=== PATIENT | male | born 1955 | race Caucasian/White ===

== ENCOUNTER 2019-04-28 14:47 | Day surgery (SDC) | payer OTHER ==
[~2019-04-28] VITALS: Ht 182.9 cm; Wt 102.3 kg
[2019-04-28 15:02] VITALS: Ht 182.9 cm; Wt 102.3 kg
[2019-04-28] MEDS ORDERED: LISINOPRIL20 MG PO (15:03)
[2019-04-28] MEDS ORDERED: MOBIC7.5 MG (15:04)
[2019-04-28] MEDS ORDERED: LIPITOR40 MG PO (15:04)
[2019-04-28 15:41] LABS: BASOPHILS 0.1 % (0-2); EOSINOPHILS 0.2 % (0-7); HEMATOCRIT 46.3 % (42.0-54.0); HEMOGLOBIN 16.4 g/dL (13.5-17.5); IMMATURE GRANULOCYTES 0.3 % (0-5); LYMPHOCYTES 9.6 % (15-50); MCH 32.3 pg (26.0-34.0); MCHC 35.4 g/dL (31.0-37.0); MCV 91.1 fL (80.0-100.0); MEAN PLATELET VOLUME 8.7 fL (7.4-10.4); MONOCYTES 3.3 % (2-11); NEUTROPHILS 86.5 % (40-80); PLATELET COUNT 164 10x3/uL (130-400); RBC 5.08 10x6/uL (4.20-6.10); RDW 12.9 % (11.5-14.5); WBC 11.2 10x3/uL (4.8-10.8)
[2019-04-28 15:46] LABS: APPEARANCE CLEAR (CLEAR); COLOR YELLOW (YELLOW); GLUCOSE NEGATIVE (NEGATIVE); KETONE SMALL mg/dL (NEGATIVE); NITRITE NEGATIVE (NEGATIVE); PROTEIN 1+ mg/dL (NEGATIVE)
[2019-04-28 15:47] LABS: BILIRUBIN NEGATIVE (NEGATIVE); UROBILINOGEN NORMAL (NORMAL)
[2019-04-28 15:51] LABS: BACTERIA FEW /hpf (NEGATIVE); EPITHELIAL CELLS NSEEN /hpf (0-5); RED CELLS - URINE 25-50 /hpf (0-5); WHITE CELLS - URINE 0-5 /hpf (NEGATIVE)
[2019-04-28 15:54] LABS: CALC OSMOLALITY 280 mosm/kg (275-300); CALCIUM 9.2 mg/dL (8.5-10.1); CARBON DIOXIDE 31.6 mmol/L (21.0-32.0); CHLORIDE - SERUM 98 mmol/L (98-107); CREATININE - SERUM 1.2 mg/dL (0.6-1.3); GLUCOSE 156 mg/dL (74-106); POTASSIUM - SERUM 3.7 mmol/L (3.5-5.1); SODIUM 138 mmol/L (136-145); UREA NITROGEN 18 mg/dL (7-18); eGFR NON AFRICAN AMERICAN 65 mL/min (90-120)
[2019-04-28 16:03] LABS: ALBUMIN 4.3 g/dL (3.4-5.0); ALKALINE PHOSPHATASE 48 U/L (46-116); ALT (SGPT) 114 U/L (10-68); AMYLASE - SERUM 78 U/L (25-115); LIPASE 435 U/L (73-393); PROTEIN - SERUM 7.9 g/dL (6.4-8.2); TROPONIN-I < 0.017 ng/mL (0.000-0.060)
[2019-04-28 17:25] LABS: APTT 26.4 SECONDS (22.8-39.4); INR 0.99 (0.85-1.17)
--- NOTE | 2019-04-28 19:20 | NUR ---
PT TO ROOM 2133 VIA BED ACCOMPANIED BY HOSPITAL STAFF AND .
--- NOTE | 2019-04-28 19:30 | NUR ---
VS: 97.5 ORAL, 116/68, HR 75, RR 19, 93% RA. DENIES PAIN OR ANY OTHER NEEDS AT THIS TIME. BED IN LOWEST POSITION, SR X1, CALL LIGHT WITHIN REACH. AT BEDSIDE. WILL CONTINUE TO MONITOR.
--- NOTE | 2019-04-28 20:00 | NUR ---
VS: 97.6 ORAL, 128/71, HR 75, RR 19, 97% RA. DENIES PAIN OR ANY OTHER NEEDS AT THIS TIME. BED IN LOWEST POSITION, SR X1, CALL LIGHT WITHIN REACH. FAMILY AT BEDSIDE. WILL CONTINUE TO MONITOR.
[2019-04-28 20:10] VITALS: BP 116/68
[2019-04-28 20:12] VITALS: BP 128/71
--- NOTE | 2019-04-28 20:35 | NUR ---
PIV TO LEFT AC REMOVED, CATHETER TIP INTACT, NO S/S OF BLEEDING AT SITE, PT TOLERATED WELL. DENIES N/V, DENIES ANY OTHER NEEDS AT THIS TIME. ASSISTED VIA WHEELCHAIR TO VEHICLE WITH .
--- NOTE | 2019-04-29 09:14 | OP ---
PATIENT NAME: SHEREEN CASTANO MEDICAL RECORD: [id number] :55 LOCATION:D.[facility] ADMISSION DATE: SURGEON: JOSE CRUZ MONTENEGRO MD DATE OF OPERATION: 04/28/2019 SURGEON: Jose Cruz Montenegro MD ANESTHESIA: TIVA by Juanjo Gaines CRNA. DIAGNOSIS: Right renal stone 9 mm at the right UP junction with hydronephrosis. PROCEDURES: Cystoscopy, right retrograde pyelogram, right ureteral stent insertion 6-[place] x 24 cm with string attached. FINDINGS: Radiodense right renal stone, 9 mm. BLOOD LOSS: None. CLINICAL HISTORY: This is a 64-year-old male with no previous history of kidney stones. He had a 2-day history of right flank pain with nausea and vomiting. CT scan done in the Emergency Room shows one stone in the right renal system, which is obstructing the right UP junction. There are no stones on the left kidney. He comes now to have a right ureteral stent inserted and at a later date, we will perform right ESWL to break up the stone. 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 DESCRIPTION OF PROCEDURE: The patient was given IV sedation. He was then placed into lithotomy position and prepped and draped. A 21-[place] cystoscope with 30-degree lens was used for visualization. There are no penile urethral strictures. The prostatic lateral lobes are obstructive. He has an elevated bladder neck also. No median lobe is seen. Single ureteral orifices are seen on each side. No bladder tumors were seen. An open-ended ureteral catheter was inserted into the right ureteral orifice and diluted contrast was injected. This gave a retrograde pyelogram and confirmed that the radiodensity we saw on fluoroscopy was indeed the renal stone. Through the lumen of the ureteral catheter, we inserted a Sensor wire into the renal pelvis. Once the wire was in position, the ureteral catheter was removed entirely. Over the wire, we inserted the 6-[place] x 24 cm ureteral stent. Once the stent was in correct position, the wire was withdrawn entirely. The stent was pushed into the bladder using a pusher. The bladder was then emptied through the cystoscope sheath and then the scope was removed. The string on the distal end of stent is maintained. It was tied to itself in a knot and then cut shorter. The patient was awakened and brought to the step-down bed where he will be transferred home. TRANSINT:[id number] Voice Confirmation ID: [id number] DOCUMENT ID: [id number] JOSE CRUZ MONTENEGRO MD at 0914 CC: [id number] DICTATION DATE: 04/28/191927 WARP HANGER: 04/28/195 [facility] [place] 04/28/19 [place] [id number]
[2019-05-03] MEDS ORDERED: ZYRTEC10 MG PO (09:42)
[2019-05-03] MEDS ORDERED: FLOMAX0.4 MG PO (09:42)
== END 2019-04-28 20:00 | disposition home or self-care (01) ==
LOC: D.ER 14:47 → D.OPS 14:47 → D.M2 18:30 → D.ER 18:38 → EDSTATUS 19:44 → D.OPS 20:00
PROVIDERS: ATTEND Emergency Medicine
DX: N13.2 Hydronephrosis with renal and ureteral calculous obstruction (principal)

== ENCOUNTER 2019-05-05 09:30 | Day surgery (SDC) | payer OTHER ==
[~2019-05-05] VITALS: Ht 182.9 cm; Wt 102.1 kg
[~2019-05-05 09:30] MED LIST: FLOMAX0.4 MG PO; LIPITOR40 MG PO; LISINOPRIL20 MG PO; MOBIC7.5 MG; ZYRTEC10 MG PO
[2019-05-05 09:54] LABS: HEMATOCRIT 45.1 % (42.0-54.0); HEMOGLOBIN 15.7 g/dL (13.5-17.5); MCH 31.8 pg (26.0-34.0); MCHC 34.8 g/dL (31.0-37.0); MCV 91.5 fL (80.0-100.0); MEAN PLATELET VOLUME 8.6 fL (7.4-10.4); RBC 4.93 10x6/uL (4.20-6.10); RDW 12.9 % (11.5-14.5); WBC 6.2 10x3/uL (4.8-10.8)
[2019-05-05 10:25] VITALS: BP 138/77; Ht 182.9 cm; Wt 102.1 kg
--- NOTE | 2019-05-05 15:51 | NUR ---
1510 IV REMOVED AND PT GIVEN INSTRUCTIONS AND D/C HOME
--- NOTE | 2019-05-05 18:55 | OP ---
PATIENT NAME: SHEREEN CASTANO MEDICAL RECORD: [id number] :55 LOCATION:D.[facility] ADMISSION DATE: SURGEON: JOSE CRUZ MONTENEGRO MD DATE OF OPERATION: 05/05/2019 SURGEON: Jose Cruz Montenegro MD ANESTHESIA: General anesthesia by Eulogio Catherine CRNA DIAGNOSIS: A 9 mm right renal stone. PROCEDURE: Right extracorporeal shock wave lithotripsy back at ESWL times 3000 shocks. FINDINGS: Radiodense right renal stone. BLOOD LOSS: None INDICATION: A 64-year-old male who initially presented with right renal colic due to a 9-mm stone in the right UP junction. He has a right ureteral stent inserted. He comes today to have lithotripsy done. He was given ampicillin and sulbactam on trial to the OR. DESCRIPTION OF PROCEDURE: The patient was placed on the treatment table. The stone was identified. It could be targeted in 2 planes. He was then given induction of general anesthesia. The stone was given 3000 shocks and was seen to break up. I will see the patient back in followup in 2 weeks' time with a KUB. If at that time, the stone is entirely gone then the stent can be removed by pulling on the string. TRANSINT:[id number] Voice Confirmation ID: [id number] DOCUMENT ID: [id number] JOSE CRUZ MONTENEGRO MD at 1855 CC: [id number] DICTATION DATE: 05/05/19 1259 LOAD TEST MECHANIC: 05/05/19 1723 [facility] 05/05/19 [place] [id number] [place] [address]
== END 2019-05-05 15:10 | disposition home or self-care (01) ==
LOC: D.OPS 09:30 → D.PAN 12:00 → D.OPS 12:45 → D.PAN 12:45 → D.OPS 15:10
PROVIDERS: Anesthesiology; ATTEND Urology
DX: N20.0 Calculus of kidney (principal)

== ENCOUNTER → 2019-05-26 15:20 | Outpatient (CLI) | payer OTHER ==
[2019-05-05 10:25] VITALS: BMI 30.6
== END | disposition home or self-care (01) ==
LOC: D.LABREF 15:20
PROVIDERS: ATTEND Urology
DX: N20.0 Calculus of kidney (principal)